=== PATIENT | female | born 1980 | race Caucasian/White ===

== ENCOUNTER 2016-12-10 05:55 | Inpatient (IN) | payer BC ==
--- NOTE | ~2016-12-10 | DS ---
Discharge Summary [facility] [address] [place]. [address] NAME: DARIUS MATHEWS : 78 STATUS : DIS IN PAT#: [id number] AGE: 36 ADM/REG DATE : 12/10/16 MR#: [id number] REPORT SERV DATE: 12/22/16 DICTATED BY: FELIPA GRIGSBY II DATE: 12/21/16 REPORT STATUS : Draft TRANSCRIBED BY: BHUPENDRA DATE: 12/21/16 Data Collection from hospitalization DISCHARGE DIAGNOSES: 1. L1-L2 stenosis with large herniated nucleus pulposus. 2. Left lower extremity radiculopathy secondary to L1-L2 stenosis and herniated nucleus pulposus. 3. History of remote lumbar fusion. 4. Anxiety and depression. 5. Hyperparathyroidism. 6. Hyperthyroidism. 7. Hypothyroidism. 8. Bipolar. 9. Restless legs syndrome. CONSULTATIONS: None. PROCEDURES PERFORMED: L1-L2 facetectomy; interbody arthrodesis, L1-L2; application of prosthetic device, L1-L2; posterolateral arthrodesis, L1-L2; nonsegmental instrumentation L1 L2; use of local autograft, allograft substitute, and bone morphogenetic protein; use of microscope and stereotactic spinal imaging, 12/10/2016. PATHOLOGY: Bone and soft tissue, lumbar spine-fragments of bone cartilage and skeletal muscle. Hematopoietic marrow was present and showed trilineage maturation. No evidence of infection or tumor. DISCHARGE MEDICATIONS: Tylenol 500 mg every four hours as needed, Xanax 0.5 mg twice a day as needed, Adderall two tablets every morning and one tablet every evening as instructed, Wellbutrin 100 mg every morning and 200 mg every evening, BuSpar 15 mg every morning and two tablets at bedtime as instructed, Luvox two tablets twice a day, Synthroid 274 mcg daily, Cytomel 5 mcg every morning, Trileptal 300 mg every morning and 600 mg at bedtime, Roxicodone 30 mg every four to six hours as needed, Lyrica 75 mg twice a day, Seroquel 600 mg at bedtime; Luisa-D one injection IM every two weeks as instructed. CONDITION AT DISCHARGE: Stable. DISPOSITION: The patient was discharged home on a regular diet-sugar free with activities as instructed. She would follow up with me, 01/03/2017. HOSPITAL COURSE: This is a 36-year-old female, who has L1-L2 stenosis with large herniated nucleus pulposus and left lower extremity radiculopathy. She has a history of a remote lumbar fusion. Treatment options were discussed and it was elected to proceed with surgical intervention. She was admitted to the hospital at this time for further evaluation and treatment. Upon admission, she was taken to the operating room, where she underwent the above-mentioned procedure. She tolerated this well and there were no complications. On postop day #1, she did have some nausea and vomiting during the night. This improved the following morning. Discharge Summary [facility] [address] [place]. [address] NAME: DARIUS MATHEWS : 78 STATUS : DIS IN PAT#: [id number] AGE: 36 ADM/REG DATE : 12/10/16 MR#: [id number] REPORT SERV DATE: 12/22/16 DICTATED BY: FELIPA GRIGSBY II DATE: 12/21/16 REPORT STATUS : Draft TRANSCRIBED BY: BHUPENDRA DATE: 12/21/16 She also complained of a non-positional headache. Cruz catheter was going to be removed. Later that morning, the patient felt like she was going to pass out when she stood up. She was complaining of a headache. Pain medications were adjusted to decrease the risk of over sedation. She was evaluated by Physical Therapy. On postop day #2, she continued to complain of a headache. This improved with the addition of Fioricet. She also had some difficulty with urgency the day previously and Cruz catheter was replaced. Discharge planning was performed. On 12/13/2016, she was stable. Discharge instructions were given. She was voiding well. Due to her improved and stable condition, she was discharged home with the above-stated instructions. Information collected by: Alba Ang I submit the above information as my discharge summary. TANJA/BHUPENDRA Felipa Grigsby II, M.D. / [id number] CC: Rina Montgomery II, D.O.
--- NOTE | ~2016-12-10 | OP ---
Record Of Operation [facility] [address] [place]. [address] NAME: MARIBEL MATHEWS : 78 STATUS : ADM IN PAT#: [id number] AGE: 36 ADM/REG DATE : 12/10/16 MR#: [id number] REPORT SERV DATE: 12/12/16 DICTATED BY: FELIPA GRIGSBY II DATE: 12/12/16 REPORT STATUS : Draft TRANSCRIBED BY: MODDread DATE: 12/12/16 DATE OF PROCEDURE: 12/10/2016 PREOPERATIVE DIAGNOSES: 1. L1-L2 stenosis with large HNP. 2. Left lower extremity radiculopathy secondary to L1-L2 stenosis and HNP. 3. History of lumbar fusion, remote. POSTOPERATIVE DIAGNOSES: 1. L1-L2 stenosis with large HNP. 2. Left lower extremity radiculopathy secondary to L1-L2 stenosis and HNP. 3. History of lumbar fusion, remote. PROCEDURES: 1. L1-L2 facetectomy. 2. Interbody arthrodesis, L1-L2. 3. Application of prosthetic device, L1-L2. 4. Posterolateral arthrodesis, L1-L2. 5. Nonsegmental instrumentation, L1-L2. 6. Use of local autograft, allograft substitute, and bone morphogenic protein. 7. Use of the microscope and stereotactic spinal imaging. SURGEON: Felipa Grigsby M.D. FLUIDS: 2400 mL LR. ESTIMATED BLOOD LOSS: 150 mL. DRAIN: One. COMPLICATIONS: None. ANTIBIOTIC: Preoperatively. IMPLANTS: [employer] and [employer] rachel connector. PREOPERATIVE HISTORY: This is a very friendly, 36-year-old female, well known to me from the past. She has been a very pleasant patient through the years. She is on some medications for some of her mental issues, but she has been extremely compliant through the years. She is a very pleasant patient who does not take narcotics on a chronic basis. She is a very stable patient from a psychiatric perspective, but again has had some treatment in the past for her mental issues. She is slightly overweight but has an excellent family support structure and was having severe pain in the buttock and leg secondary to an HNP and stenosis above her previous multilevel fusion. I discussed with her the pros and cons of surgery. Her and mother were also very supportive and overall, I felt could tell provide assistance with her physically postoperatively following the hospitalization. Record Of Operation [facility] [address] [place]. [address] NAME: MARIBEL MATHEWS : 78 STATUS : ADM IN PAT#: [id number] AGE: 36 ADM/REG DATE : 12/10/16 MR#: [id number] REPORT SERV DATE: 12/12/16 DICTATED BY: FELIPA GRIGSBY II DATE: 12/12/16 REPORT STATUS : Draft TRANSCRIBED BY: MODDread DATE: 12/12/16 DESCRIPTION OF PROCEDURE: After informed consent was obtained, Maribel was brought to the operating room at her request, and general anesthesia achieved. She was placed in the prone position and the back was prepped and draped in a sterile fashion. The stereotactic spinal pin was placed into the right iliac crest followed by completion of the intraoperative CT scan. The stereotactic guidance was then used throughout the case. Next, the minimally invasive incision was performed over the L1-L2 disc space. The quadrant retractor was placed and the transverse processes of L1 and L2 identified. There was a copious amount of fused bone over the rachel and screws between L2 and L3. The high-speed bur was used to remove and expose the rachel between L2 and L3. In an effort to keep the surgery as minimally invasive as possible, I was hoping to avoid having to expose the entirety of the rachel and previous biomechanical construct. I felt that the [employer]tronic rachel screw connector would be excellent way to keep the incision small. To use this, however we had to expose the rachel between L2 and L3. At this point, the microscope was brought into place and under microscopic visualization, the facet was removed at L1-L2. The pars was now completely removed and the pedicle-to- pedicle decompression carried out. The hypertrophic ligamentum flavum was removed and the laminectomy also performed and the central canal decompressed. At this point, the L2 nerve root was evaluated and a large semi-contained and semi-extruded fragment was now identified and removed. This was done with minimal retraction of the L2 nerve root. At this point, the disk space was further entered and the diskectomy completed and the endplates prepared with the curettes and the francesca. Punctate bleeding bone was identified on both endplates. At this point, the local autograft, allograft substitute, and bone morphogenic protein were placed into the disk space after irrigation was performed. The prosthetic device was then also chosen and placed into the anterior column. Excellent fit was obtained. At this point, the pedicle screw was applied into L1 using stereotactic guidance. The rachel to screw connector was now attached to the rachel between L2 and L3. Excellent tightening was now performed and the rachel attached to the L1 pedicle screw. On the right side, we then performed a similar procedure where upon the L1 screw was placed and then again the rachel screw connector utilized. A repeat CT scan confirmed acceptable placement of the implants. Final tightening was performed of the biomechanical construct bilaterally. On the left, we then decorticated the transverse process of L1 and the L2 transverse process as well as the fusion mass. Local autograft, allograft substitute, and bone morphogenic protein were then placed along these decorticated surfaces. A deep drain was placed bilaterally secondary to mild bleeding. The standard closure was performed, and the patient was extubated, transferred to PACU in stable condition. JJ/MODL Record Of Operation [address] [address] NAME: MARIBEL MATHEWS : 78 STATUS : ADM IN PAT#: [id number] AGE: 36 ADM/REG DATE : 12/10/16 MR#: [id number] REPORT SERV DATE: 12/12/16 DICTATED BY: FELIPA GRIGSBY II DATE: 12/12/16 REPORT STATUS : Draft TRANSCRIBED BY: MODL DATE: 12/12/16 Felipa Grigsby II, M.D. / [id number] CC: Rina Montgomery II, D.O.
[~2016-12-10 05:55] MED LIST: ACET500CAP PO; ADDERALL20 MG PO; BENTYL10 PO; BUSPAR15 M1 PO; CITRACAL PO; CYTO5 PO; LUVOX CR100 MG OR; LUVOX CR100 MG PO; LUVOX100 PO; LYRICA150 MG PO; LYRICA75 PO; MULTIPLE VIT PO; MULTIVIT/MIN PO; OXYCONTIN15 MG PO; PCET PO; PERCOCET1 TA2 PO; PROMETRIUM PO; SEROQUEL300 MG PO; SYNTHROID137 MCG PO; SYNTHROID200 MCG PO; SYNTHROID300 MCG PO; TRILEP150 PO; TRILEP300 PO; TRILEPTAL600 MG PO; VITA D IM; VITC500 PO; WELL100 PO; X5 PO; [UNRECOGNIZED DRUG - OTHER] IV
[2016-12-13] MEDS ORDERED: ROXICODONE30 MG PO (09:10)
== END 2016-12-13 15:35 | disposition home or self-care (01) | DRG 460 ==
LOC: SDC/OF 05:55 → PACU 14:10 → 3SO 15:44
PROVIDERS: Orthopaedic Surgery
PROC: 0SG00AJ Fusion of Lumbar Vertebral Joint with Interbody Fusion Device, Posterior Approach, Anterior Column, Open Approach (ICD-10-PCS; principal; 2016-12-10 09:30)
PROC: 4A11X4G Monitoring of Peripheral Nervous Electrical Activity, Intraoperative, External Approach (ICD-10-PCS; 2016-12-10 09:30)
DX: M51.16 Intervertebral disc disorders with radiculopathy, lumbar region (principal); E03.9 Hypothyroidism, unspecified; G25.81 Restless legs syndrome; F41.9 Anxiety disorder, unspecified; F31.9 Bipolar disorder, unspecified; R33.9 Retention of urine, unspecified
CPT/HCPCS: 82962; 87641; 88304; 88311; 97116-GP; 97161-GP; A9270-GY; C1713; J0690; J1170; J2250; J2405; J2550; J2710; J3010